=== PATIENT | female | born 1955 | race Caucasian/White ===

== ENCOUNTER 2016-07-24 13:28 | Day surgery (SDC) | payer OTHER ==
[2016-07-24] VITALS (12 sets, daily range): BP systolic 97–120; BP diastolic 37–59; PULSE 56–75; RESP 9–19; Ht 170.2 cm; Wt 92.0 kg
[~2016-07-24] VITALS: Ht 170.2 cm; Wt 92.0 kg
[2016-07-24] MEDS ORDERED: HYDR200T39 PO (14:08)
[2016-07-24] MEDS ORDERED: METH750T2 PO (14:09)
[2016-07-24] MEDS ORDERED: GABA300C16 PO (14:09)
[2016-07-24] MEDS ORDERED: OMEP20CA16 PO (14:10)
[2016-07-24] MEDS ORDERED: SOD CHLORIDE 0.9% 1,000 ML IV ONE (14:30)
[2016-07-24] MEDS ORDERED: CEFAZOLIN 2 GM/50 ML (PMX) 50 ML IVPB ONE (14:30)
[2016-07-24 15:34] LABS: ADD SCAN DIFF NO
[2016-07-24 15:36] LABS: BASOPHILS % 0.6 % (0.0-2.0); EOSINOPHILS % 0.6 % (0.0-7.0); HEMATOCRIT 42.2 % (37.0-47.0); HEMOGLOBIN 13.9 g/dl (12.0-16.0); LYMPHOCYTES # 2.6 10^3/ul (0.8-2.9); LYMPHOCYTES % 49.2 % (15.0-51.0); MEAN CORPUSCULAR HEMOGLOBIN 29.4 pg (29.0-33.0); MEAN CORPUSCULAR HGB CONC 32.9 g/dl (32.0-37.0); MEAN CORPUSCULAR VOLUME 89.4 fl (82.0-101.0); MEAN PLATELET VOLUME 10.1 fl (7.4-10.4); MONOCYTE # 0.6 10^3/ul (0.3-0.9); MONOCYTES % 10.7 % (0.0-11.0); NEUTROPHIL # 2.1 10^3/ul (1.6-7.5); NEUTROPHILS % 38.5 % (39.0-77.0); PLATELET COUNT 296 10^3/UL (140-415); RED BLOOD COUNT 4.72 10^6/ul (4.20-5.40); WHITE BLOOD COUNT 5.3 10^3/ul (4.8-10.8)
[2016-07-24 15:41] LABS: INR 0.99; PROTIME 13.1 Sec (12.2-14.2)
[2016-07-24 15:42] LABS: PARTIAL THROMBOPLASTIN TIME 29.4 Sec (25.0-35.0)
[2016-07-24 15:44] LABS: POTASSIUM 4.1 mmol/L (3.5-5.1)
[2016-07-24 15:45] LABS: CALCIUM 9.2 mg/dl (8.4-10.2); CREATININE 0.56 mg/dl (0.44-1.00)
[2016-07-24] MEDS ORDERED: BUPIVACAINE 0.25% (MPF) 30 ML INJ ONE (17:49)
[2016-07-24] MEDS ORDERED: LIDOCAINE 1% (STERILE-PAK) 30 ML INJ ONE (17:49)
--- NOTE | 2016-07-24 17:55 | HPN ---
Date/Time of Note Date/Time of Note DATE: 07/24/16 TIME: 17:55 Interval H&P Admission Note Pt. seen H&P reviewed: No system changes TRAVON DAMON MD Jul 24, 2016 17:55
[2016-07-24] MEDS ORDERED: PROPOFOL 20 ML ONE (18:08)
[2016-07-24] MEDS ORDERED: MIDAZOLAM 1 MG/ML 2 ML INJ ONE (18:08)
[2016-07-24] MEDS ORDERED: ONDANSETRON 4 MG INJ ONE (18:08)
[2016-07-24] MEDS ORDERED: FENTAnyl 50 MCG/ML VIAL ONE ×2 (18:08→18:32)
[2016-07-24] MEDS ORDERED: CEFAZOLIN 1 GM INJ ONE (18:08)
[2016-07-24] MEDS ORDERED: KETOROLAC 30 MG INJ ONE (18:09)
[2016-07-24] MEDS ORDERED: BACITRACIN/POLYMYXIN 28.35 GM OINT TOP ONE (18:25)
[2016-07-24] MEDS ORDERED: hydrALAzine 20 MG INJ IV PRN (18:30)
[2016-07-24] MEDS ORDERED: FENTAnyl 50 MCG/ML VIAL IV PRN ×3 (18:30)
[2016-07-24] MEDS ORDERED: ONDANSETRON 4 MG INJ IV PRN (18:30)
[2016-07-24] MEDS ORDERED: EPHEDrine SULFATE 50 MG/5 ML SYG IV PRN (18:30)
[2016-07-24] MEDS ORDERED: HYDROmorphONE (0.2 MG/ML) 10ML SYG IV PRN ×3 (18:30)
[2016-07-24] MEDS ORDERED: MEPERIDINE 25 MG INJ IV PRN (18:30)
[2016-07-24] MEDS ORDERED: MIDAZOLAM 1 MG/ML 2 ML INJ IV PRN (18:30)
[2016-07-24] MEDS ORDERED: LABETALOL HCL 20MG INJ IV PRN (18:30)
[2016-07-24] MEDS ORDERED: TRIMETHOBENZAMIDE 100 MG/ML VIAL IM PRN (18:30)
[2016-07-24] MEDS ORDERED: DIPHENHYDRAMINE 50 MG INJ IV PRN (18:30)
[2016-07-24] MEDS ORDERED: IBUPROFEN 600 MG TAB PO PRN (19:00)
--- NOTE | 2016-07-24 19:10 | OPR ---
Date/Time of Note Date/Time of Note DATE: 07/24/16 TIME: 19:03 Operative Report Procedure Date: Jul 24, 2016 Preoperative Diagnosis 1. Soft tissue mass of back 2. Soft tissue mass of chest wall 3. Soft tissue mass of right elbow Postoperative Diagnosis 1. Soft tissue mass of back 2. Soft tissue mass of chest wall 3. Soft tissue mass of right elbow Operation Performed 1. Excision soft tissue mass of back less than 3 cm 2. Excision of soft tissue mass chest wall less than 3 cm 3. Excision of soft tissue mass right elbow less than 3 cm Surgeon: TRAVON DAMON MD Anesthesia: MAC Anesthesiologist: Cooper Banks M.D. Estimated Blood Loss: minimal Specimens 1. Soft tissue mass of back 2. Soft tissue mass of chest wall 3. Soft tissue mass of right elbow Complications: None Pt Condition Post Procedure: stable Disposition: PACU Indications Patient is a 60-year-old female who presents to the office complaining of soft tissue masses of the back, chest wall, and right elbow. These have been recently enlarging and causing discomfort. She was scheduled for elective excision for symptom relief and definitive pathological diagnosis. All risk and benefits of procedure including, but not limited to: Wound infection, excessive bleeding, mass recurrence, etc. were all explained to the patient full detail. She fully understood and wished to proceed with the procedure. Informed consent was obtained. Operative\Procedure Findings All masses consistent with sebaceous cysts Procedure Description The patient was brought to the operating room and placed in the right lateral decubitus position with the left side up. Bilateral sequential compression devices were placed on both lower extremities. A dose of broad-spectrum perioperative intravenous antibiotics was given. The masses were all preoperatively marked and confirmed with the patient in the holding area. After the induction of adequate sedation patient's back was prepped and draped in standard surgical fashion. 1% lidocaine local anesthesia was infiltrated in the area of the back mass. An elliptical incision was then made using a 15 blade scalpel over the mass. It was carried down through the skin into the dermis. Using Metzenbaum scissors the mass was dissected circumferentially and transected at its base and passed off the field as specimen. Hemostasis was inspected for and noted to be adequate. The incision was then reapproximated using interrupted 3-0 nylon sutures. Incision was cleaned and sterile dressings were applied. The patient was then turned supine. The chest wall and right elbow were then prepped and draped in standard surgical fashion. Attention was turned to the right chest wall mass. 1% lidocaine local anesthesia was infiltrated around the area of the mass. A 4 mm biopsy punch was then used to punch out the mass. This passed off the field as specimen. Hemostasis was inspected for and noted to be adequate. Incision was reapproximated using a 3-0 nylon suture. Incision was cleaned and sterile dressings were applied. Attention was then turned to the right elbow mass. 1% lidocaine local anesthesia was infiltrated around the area of the mass. An incision was then made over the mass using a 15 blade scalpel. Incision was carried down through the skin and dermis. A sebaceous cyst was identified. It was dissected free of surrounding tissues and transected at its base and passed off the field as specimen. Hemostasis was then inspected for and noted to be adequate. Incision was reapproximated using 4 Monocryl suture in a subcuticular fashion. Incision was cleaned and Steri-Strip was applied with sterile dressing. The patient was then transported to the recovery room in stable condition. All counts were correct at the end of the case 2. TRAVON DAMON MD Jul 24, 2016 19:10
== END 2016-07-24 20:10 | disposition home or self-care (01) ==
LOC: SDS 13:28
PROVIDERS: ATTEND Surgery
DX: R22.2 Localized swelling, mass and lump, trunk (principal); L72.11 Pilar cyst; E78.5 Hyperlipidemia, unspecified
CPT/HCPCS: 11406; 80048; 82962; 85025; 85610; 85730; 88307; J0690; J2250; J2405; J3010; J1885